=== PATIENT | female | born 2000 | race Caucasian/White ===

== ENCOUNTER 2021-02-25 21:21 | Emergency (ER) | payer OTHER ==
[~2021-02-25] VITALS: Ht 152.4 cm; Wt 49.9 kg
[~2021-02-25 21:21] MED LIST: ZANTAC150 MG PO
[2021-02-26] MEDS ORDERED: TENCON 50-3251 EACH PO (01:25)
== END 2021-02-26 01:30 | disposition home or self-care (01) ==
LOC: EMR PED 21:21
DX: R07.89 Other chest pain (principal); R68.83 Chills (without fever); Z03.818 Encounter for observation for suspected exposure to other biological agents ruled out

== ENCOUNTER 2021-08-18 14:35 | Emergency (ER) | payer OTHER ==
[~2021-08-18] VITALS: Ht 152.4 cm; Wt 51.7 kg
[~2021-08-18 14:35] MED LIST changes: +TENCON 50-3251 EACH PO
== END 2021-08-18 18:17 | disposition home or self-care (01) ==
LOC: EMR PED 14:35
DX: K29.60 Other gastritis without bleeding (principal)

== ENCOUNTER 2021-08-18 19:40 | Emergency (ER) | payer OTHER ==
[~2021-08-18] VITALS: Ht 154.9 cm; Wt 52.2 kg
== END 2021-08-18 23:22 | disposition home or self-care (01) ==
LOC: ER 19:40 → EMR PED 19:45
DX: K29.60 Other gastritis without bleeding (principal); R10.9 Unspecified abdominal pain; Z03.818 Encounter for observation for suspected exposure to other biological agents ruled out

== ENCOUNTER 2022-04-24 13:19 | Emergency (ER) | payer OTHER ==
[~2022-04-24] VITALS: Ht 152.4 cm; Wt 49.9 kg
[2022-04-24] MEDS ORDERED: PEPCID AC10 MG (14:14)
== END 2022-04-24 22:24 | disposition home or self-care (01) ==
LOC: ER 13:19
DX: J06.9 Acute upper respiratory infection, unspecified (principal); A49.3 Mycoplasma infection, unspecified site; Z20.822 Contact with and (suspected) exposure to COVID-19

== ENCOUNTER 2022-08-26 08:17 | Emergency (ER) | payer OTHER ==
[~2022-08-26] VITALS: Ht 152.4 cm; Wt 52.2 kg
[~2022-08-26 08:17] MED LIST changes: +PEPCID AC10 MG
== END 2022-08-26 11:24 | disposition home or self-care (01) ==
LOC: ER 08:17
DX: J06.9 Acute upper respiratory infection, unspecified (principal); A49.3 Mycoplasma infection, unspecified site; Z20.822 Contact with and (suspected) exposure to COVID-19; Z88.6 Allergy status to analgesic agent; Z88.8 Allergy status to other drugs, medicaments and biological substances

== ENCOUNTER 2023-01-22 18:17 | Emergency (ER) | payer OTHER ==
[~2023-01-22] VITALS: Ht 152.4 cm; Wt 51.3 kg
== END 2023-01-22 19:05 | disposition home or self-care (01) ==
LOC: ER 18:17
DX: M54.2 Cervicalgia (principal); M25.512 Pain in left shoulder; W01.0XXA Fall on same level from slipping, tripping and stumbling without subsequent striking against object, initial encounter; Y93.9 Activity, unspecified; Y92.9 Unspecified place or not applicable; Y99.9 Unspecified external cause status

== ENCOUNTER 2023-03-20 23:40 | Emergency (ER) | payer OTHER ==
[~2023-03-20] VITALS: Ht 152.4 cm; Wt 55.3 kg
[2023-03-21] MEDS ORDERED: BACTRIM DS TAB1 EACH PO (03:24)
== END 2023-03-21 03:41 | disposition home or self-care (01) ==
LOC: ER 23:40
DX: N39.0 Urinary tract infection, site not specified (principal); Z88.6 Allergy status to analgesic agent; Z88.8 Allergy status to other drugs, medicaments and biological substances

== ENCOUNTER 2023-05-05 10:07 | Emergency (ER) | payer OTHER ==
[~2023-05-05] VITALS: Ht 152.4 cm; Wt 53.1 kg
[~2023-05-05 10:07] MED LIST changes: +BACTRIM DS TAB1 EACH PO
== END 2023-05-05 15:55 | disposition home or self-care (01) ==
LOC: ER 10:07
DX: R42 Dizziness and giddiness (principal); E86.0 Dehydration; R51.9 Headache, unspecified; Z88.6 Allergy status to analgesic agent; Z88.8 Allergy status to other drugs, medicaments and biological substances

== ENCOUNTER 2023-08-05 20:41 | Emergency (ER) | payer OTHER ==
[~2023-08-05] VITALS: Ht 152.4 cm; Wt 54.4 kg
== END 2023-08-06 00:58 | disposition home or self-care (01) ==
LOC: ER 20:41
DX: H10.89 Other conjunctivitis (principal); Z91.041 Radiographic dye allergy status; Z88.6 Allergy status to analgesic agent; Z20.822 Contact with and (suspected) exposure to COVID-19

== ENCOUNTER 2023-09-29 06:58 | Emergency (ER) | payer OTHER ==
[~2023-09-29] VITALS: Ht 152.4 cm; Wt 56.7 kg
[2023-09-29 09:37] LABS: HEMATOCRIT 35.9 % (36.0-45.00); HEMOGLOBIN 12.5 g/dL (12.0-15.00); MEAN CELL VOLUME 89.5 fL (80.00-100.00); MEAN CORPUSCULAR HEMOGLOBIN 31.1 pg (27.00-32.0); MEAN CORPUSCULAR HGB CONC 34.8 g/dl (32.0-36.0); PLATELET COUNT 333 K/uL (150-450); RED BLOOD COUNT 4.01 M/uL (4.00-6.00); RED CELL DISTRIBUTION WIDTH 12.1 % (11.5-14.5)
[2023-09-29 10:07] LABS: CALCIUM 8.8 mg/dL (8.5-10.1); CREATININE SERUM 0.57 mg/dL (0.55-1.02); GFR 132.63; POTASSIUM 3.36 mEq/L (3.5-5.1)
[2023-09-29 10:12] LABS: URINE APPEARANCE Clear; URINE BILIRRUBIN Negative (NEGATIVE); URINE COLOR Yellow; URINE GLUCOSE Negative (NEGATIVE); URINE LEUKOCYTE Negative; URINE NITRATE Negative; URINE PROTEIN Negative (NEGATIVE)
[2023-09-29 10:13] LABS: URINE EPITHELIAL CELLS 60.1 uL (0.0-38.8); URINE RBC 22.9 uL (0.0-20.8); URINE WBC 23.1 uL (0.0-23.2)
[2023-09-29 10:40] LABS: URINE BLOOD TRACES
== END 2023-09-29 14:56 | disposition home or self-care (01) ==
LOC: ER 06:58
PROVIDERS: General Practice
DX: R11.10 Vomiting, unspecified (principal); E86.0 Dehydration; Z88.6 Allergy status to analgesic agent; Z91.041 Radiographic dye allergy status; Z20.822 Contact with and (suspected) exposure to COVID-19

== ENCOUNTER 2023-10-28 05:16 | Inpatient (IN) | payer OTHER ==
[~2023-10-28] VITALS: Ht 152.4 cm; Wt 54.4 kg
[2023-10-28] MEDS ORDERED: PEPCID AC20 MG (05:29)
[2023-10-28 06:24] LABS: HEMATOCRIT 33.7 % (36.0-45.00); HEMOGLOBIN 11.8 g/dL (12.0-15.00); MEAN CELL VOLUME 88.4 fL (80.00-100.00); MEAN CORPUSCULAR HEMOGLOBIN 30.9 pg (27.00-32.0); MEAN CORPUSCULAR HGB CONC 34.9 g/dl (32.0-36.0); PLATELET COUNT 299 K/uL (150-450); RED BLOOD COUNT 3.81 M/uL (4.00-6.00); RED CELL DISTRIBUTION WIDTH 12.7 % (11.5-14.5)
[2023-10-28 07:30] LABS: ANION GAP 9 (10.0-20.0); BLOOD UREA NITROGEN 13 mg/dL (7-18); BUN CREA RATIO 22 (7.0-25.0); CALCIUM 9.2 mg/dL (8.5-10.1); CARBON DIOXIDE 28 mEq/L (21-32); CHLORIDE 105 mmol/L (98-107); CREATININE SERUM 0.59 mg/dL (0.55-1.02); GFR 127.46; GLUCOSE FASTING 94 mg/dL (65-100); OSMOLALITY SERUM 276 MOSM/KG (275-295); POTASSIUM 3.73 mEq/L (3.5-5.1); SODIUM 138 mmol/L (136-145)
[2023-10-28 07:31] LABS: HCG QUANTITATIVE < 1 mUI/mL (1-3)
[2023-10-28 08:14] LABS: URINE APPEARANCE Cloudy; URINE BILIRRUBIN Negative (NEGATIVE); URINE BLOOD Moderate; URINE COLOR Yellow; URINE GLUCOSE Negative (NEGATIVE); URINE LEUKOCYTE Moderate; URINE NITRATE Positive
[2023-10-28 08:18] LABS: URINE EPITHELIAL CELLS 21.4 uL (0.0-38.8); URINE RBC 57.1 uL (0.0-20.8); URINE WBC 2421.5 uL (0.0-23.2)
[2023-10-28 09:33] LABS: URINE BACTERIA > 9821.5 uL (0.0-1933); URINE PROTEIN 100 (NEGATIVE)
[2023-10-29 07:33] LABS: HEMATOCRIT 30.6 % (36.0-45.00); HEMOGLOBIN 10.9 g/dL (12.0-15.00); MEAN CELL VOLUME 90.4 fL (80.00-100.00); MEAN CORPUSCULAR HEMOGLOBIN 32.1 pg (27.00-32.0); MEAN CORPUSCULAR HGB CONC 35.5 g/dl (32.0-36.0); PLATELET COUNT 266 K/uL (150-450); RED BLOOD COUNT 3.39 M/uL (4.00-6.00); RED CELL DISTRIBUTION WIDTH 12.5 % (11.5-14.5)
[2023-10-29 08:03] LABS: INR 0.98; PARTIAL THROMBOPLASTIN TIME 29.9 SECONDS (22.0-34.0); PROTHROMBIN TIME 10.3 SECONDS (9.0-11.5)
[2023-10-29 08:16] LABS: ERYTHROCYTE SEDIMENTATION RATE 42 mm/hr
[2023-10-29 08:23] LABS: ALBUMIN 3.1 gm/dL (3.4-5.0); BILIRUBIN TOTAL 0.43 mg/dL (0.3-1.2); BILIRUBIN,CONJUGATED 0.14 mg/dL (0.0-0.2); BILIRUBIN,UNCONJUGATED 0.29 mg/dL (0.0-0.6); CALCIUM 8.3 mg/dL (8.5-10.1); CHOL HDL RATIO 2.1 (0-5.0); CREATININE SERUM 0.5 mg/dL (0.55-1.02); GFR 154.28; GLOBULINA 3.4 G/DL (2.4-3.5); MAGNESIUM 1.5 mg/dL (1.8-2.4); POTASSIUM 3.98 mEq/L (3.5-5.1); T4 FREE 0.82 NG/ML (0.76-1.46); TOTAL PROTEIN 6.5 gm/dL (6.4-8.2); TSH 0.91 uIU/mL (0.358-3.74)
[2023-10-29 08:26] LABS: C-REACTIVE PROTEIN 7.32 MG/DL (0.00-0.29)
[2023-10-29] MEDS ORDERED: SPRINTEC 28 DA1 EACH (10:08)
[2023-10-29 10:30] LABS: URINE APPEARANCE Cloudy; URINE BILIRRUBIN Negative (NEGATIVE); URINE BLOOD Trace; URINE COLOR Yellow; URINE GLUCOSE Negative (NEGATIVE); URINE LEUKOCYTE Moderate; URINE NITRATE Negative; URINE PROTEIN Negative (NEGATIVE); URINE UROBILINOGEN 0.2 E.U./dl
[2023-10-29 10:35] LABS: URINE RBC 47.2 uL (0.0-20.8); URINE WBC 224.9 uL (0.0-23.2)
[2023-10-29 11:06] LABS: URINE EPITHELIAL CELLS > 201.7 uL (0.0-38.8)
[2023-10-30 05:20] LABS: HEMATOCRIT 30.2 % (36.0-45.00); HEMOGLOBIN 10.7 g/dL (12.0-15.00); MEAN CELL VOLUME 89.7 fL (80.00-100.00); MEAN CORPUSCULAR HEMOGLOBIN 31.7 pg (27.00-32.0); MEAN CORPUSCULAR HGB CONC 35.3 g/dl (32.0-36.0); PLATELET COUNT 281 K/uL (150-450); RED BLOOD COUNT 3.37 M/uL (4.00-6.00); RED CELL DISTRIBUTION WIDTH 12.8 % (11.5-14.5)
[2023-10-30 05:43] LABS: CALCIUM 8.7 mg/dL (8.5-10.1); CREATININE SERUM 0.63 mg/dL (0.55-1.02); GFR 118.16; POTASSIUM 4.05 mEq/L (3.5-5.1)
[2023-10-31 12:15] LABS: PH,URINE 6.5 (5.0-8.0); URINE APPEARANCE Clear; URINE BILIRRUBIN Negative (NEGATIVE); URINE BLOOD Negative; URINE COLOR Yellow; URINE GLUCOSE Negative (NEGATIVE); URINE LEUKOCYTE Negative; URINE NITRATE Negative; URINE PROTEIN Negative (NEGATIVE); URINE UROBILINOGEN 0.2 E.U./dl
[2023-10-31 12:18] LABS: URINE BACTERIA 7.5 uL (0.0-1933); URINE EPITHELIAL CELLS 8.3 uL (0.0-38.8); URINE RBC 4.8 uL (0.0-20.8); URINE WBC 3.2 uL (0.0-23.2)
[2023-11-02] MEDS ORDERED: INTESTINEX680 M1 PO (09:00)
== END 2023-11-02 12:05 | disposition home or self-care (01) | DRG 690 ==
LOC: ER 05:16 → MEDJ 18:52 → SEC-K 18:52 → MEDI 18:52 → MEDJ 19:18 → MEDI 10-29 10:43
PROVIDERS: General Practice; ADMIT Internal Medicine; ATTEND Internal Medicine
PROC: BW21ZZZ Computerized Tomography (CT Scan) of Abdomen and Pelvis (ICD-10-PCS; principal; 2023-10-28)
DX: N39.0 Urinary tract infection, site not specified (principal); D84.9 Immunodeficiency, unspecified; G35 Multiple sclerosis; K29.60 Other gastritis without bleeding; N12 Tubulo-interstitial nephritis, not specified as acute or chronic; A49.3 Mycoplasma infection, unspecified site

== ENCOUNTER 2023-12-09 20:27 | Emergency (ER) | payer OTHER ==
[~2023-12-09] VITALS: Ht 154.9 cm; Wt 57.2 kg
[~2023-12-09 20:27] MED LIST changes: +INTESTINEX680 M1 PO; +PEPCID AC20 MG; +SPRINTEC 28 DA1 EACH
== END 2023-12-10 05:20 | disposition home or self-care (01) ==
LOC: ER 20:28
DX: J32.8 Other chronic sinusitis (principal); Z88.6 Allergy status to analgesic agent; Z91.013 Allergy to seafood; G35 Multiple sclerosis; Z20.822 Contact with and (suspected) exposure to COVID-19

== ENCOUNTER → 2024-11-25 | Emergency (ER) | payer OTHER ==
[~2024-11-25] VITALS: Ht 154.9 cm; Wt 56.7 kg
[~2024-11-25] MED LIST changes: +ACETAMINOPHEN 500 MG GEL..CAP PO ONE; +NORFLEX100MG PO; +TRAM1TAB98 PO
== END | disposition still patient (30) ==
LOC: ER 21:55
DX: O26.899 Other specified pregnancy related conditions, unspecified trimester (principal)

== ENCOUNTER 2024-11-26 09:53 | Emergency (ER) | payer OTHER ==
[~2024-11-26] VITALS: Ht 152.4 cm; Wt 56.7 kg
[~2024-11-26 09:53] MED LIST changes: -ACETAMINOPHEN 500 MG GEL..CAP PO ONE
[2024-11-26] MEDS ORDERED: ONDANSETRON HCL 2 MG/ML VIAL IV STA (10:48)
[2024-11-26] MEDS ORDERED: FAMOtidine 10 MG/ML (4ML VIAL) IV STA (10:49)
[2024-11-26] MEDS ORDERED: ONDANSETRON HCL 2 MG/ML VIAL ONE (10:52)
[2024-11-26] MEDS ORDERED: FAMOTIDINE/PF 20 MG/2 ML VIAL ONE (10:52)
[2024-11-26 11:11] LABS: HEMATOCRIT 36.7 % (36.0-45.00); HEMOGLOBIN 12.5 g/dL (12.0-15.00); MEAN CELL VOLUME 89.4 fL (80.00-100.00); MEAN CORPUSCULAR HEMOGLOBIN 30.4 pg (27.00-32.0); PLATELET COUNT 255 K/uL (150-450); RED CELL DISTRIBUTION WIDTH 12.6 % (11.5-14.5)
[2024-11-26 11:36] LABS: PH,URINE 5.5 (5.0-8.0); URINE APPEARANCE Cloudy; URINE BILIRRUBIN Negative (NEGATIVE); URINE BLOOD Moderate; URINE COLOR Yellow; URINE GLUCOSE Negative (NEGATIVE); URINE LEUKOCYTE Trace; URINE NITRATE Negative; URINE PROTEIN Trace (NEGATIVE); URINE UROBILINOGEN 0.2 E.U./dl
[2024-11-26 11:39] LABS: URINE BACTERIA 7925.1 uL (0.0-1933); URINE EPITHELIAL CELLS 140.5 uL (0.0-38.8); URINE WBC 34.1 uL (0.0-23.2)
[2024-11-26 11:51] LABS: URINE CAST 0.14 uL (0.0-1.40); URINE KETONE 80 (NEGATIVE)
== END 2024-11-26 12:45 | disposition home or self-care (01) ==
LOC: ER 09:55
PROVIDERS: General Practice
DX: J10.1 Influenza due to other identified influenza virus with other respiratory manifestations (principal); R11.10 Vomiting, unspecified; Z20.822 Contact with and (suspected) exposure to COVID-19; Z88.6 Allergy status to analgesic agent; Z91.018 Allergy to other foods; Z91.041 Radiographic dye allergy status

== ENCOUNTER → 2025-04-09 | Emergency (ER) | payer OTHER ==
[~2025-04-09] VITALS: Ht 154.9 cm; Wt 58.1 kg
== END | disposition left against medical advice (07) ==
LOC: ER 21:50
DX: Z53.21 Procedure and treatment not carried out due to patient leaving prior to being seen by health care provider (principal)

== ENCOUNTER 2025-11-16 11:41 | Emergency (ER) | payer OTHER ==
[~2025-11-16] VITALS: Ht 152.4 cm; Wt 53.5 kg
[2025-11-16 11:44] VITALS: O2SAT 100
[2025-11-16 12:03] LABS: BASO % 0.6 % (0.1-1.2); EOS # 0.17 (0.04-0.54); EOS % 1.6 % (0.7-7.0); LYMPH # 4.30 (1.18-3.74); LYMPH % 40.9 % (19.3-53.1); MEAN PLATELET VOLUME 9.90 fl (9.4-12.4); MONO # 0.85 (0.24-0.82); MONO % 8.1 % (4.7-12.5); NEUT # 5.12 (1.56-6.13); NEUT % 48.6 % (34.0-71.1); RED CELL DISTRIBUTION WIDTH 11.2 % (11.6-14.4)
[2025-11-16 12:31] LABS: BUN CREA RATIO 13 (7.0-25.0); CREATININE SERUM 0.72 mg/dL (0.55-1.02); GFR 99.52; GLUCOSE FASTING 107 mg/dL (65-100); OSMOLALITY SERUM 279 MOSM/KG (275-295)
[2025-11-16 12:32] LABS: HCG QUANTITATIVE < 1 mUI/mL (1-3)
[2025-11-16 13:37] VITALS: BP 107/68
== END 2025-11-16 13:40 | disposition home or self-care (01) ==
LOC: ER 11:41
PROVIDERS: Emergency Medicine
DX: F41.0 Panic disorder [episodic paroxysmal anxiety] (principal); F41.8 Other specified anxiety disorders; K29.70 Gastritis, unspecified, without bleeding; G35.D Multiple sclerosis, unspecified; Z88.6 Allergy status to analgesic agent; Z91.041 Radiographic dye allergy status; Z91.018 Allergy to other foods